=== PATIENT | male | born 1965 | race Caucasian/White ===

== ENCOUNTER 2016-10-06 17:08 | Emergency (ER) | payer SELFPAY ==
[2009-07-06 00:07] VITALS: BMI 24.3
== END 2016-10-06 18:37 | disposition home or self-care (01) ==
LOC: D.ER 17:08
DX: R20.2 Paresthesia of skin (principal); F15.10 Other stimulant abuse, uncomplicated

== ENCOUNTER 2017-07-05 22:06 | Emergency (ER) | payer SELFPAY ==
[2009-07-06 00:07] VITALS: BMI 24.3
== END 2017-07-05 22:40 | disposition left against medical advice (07) ==
LOC: D.ER 22:06
DX: Z00.00 Encounter for general adult medical examination without abnormal findings (principal)

== ENCOUNTER 2017-10-31 00:15 | Emergency (ER) | payer OTHER ==
[~2017-10-31] VITALS: Ht 172.7 cm; Wt 77.3 kg
[2017-10-31 00:19] VITALS: Ht 172.7 cm; Wt 77.3 kg
[2017-10-31] MEDS ORDERED: FLOMAX0.4 MG PO (00:20)
[2017-10-31 01:03] LABS: APPEARANCE CLEAR (CLEAR); BILIRUBIN NEGATIVE (NEGATIVE); COLOR YELLOW (YELLOW); GLUCOSE NEGATIVE (NEGATIVE); KETONE NEGATIVE (NEGATIVE); NITRITE NEGATIVE (NEGATIVE); PROTEIN NEGATIVE (NEGATIVE); UROBILINOGEN NORMAL (NORMAL)
[2017-10-31 01:05] LABS: BASOPHILS 0.2 % (0-2); EOSINOPHILS 1.2 % (0-7); HEMATOCRIT 39.9 % (42.0-54.0); HEMOGLOBIN 14.5 g/dL (13.5-17.5); IMMATURE GRANULOCYTES 0.2 % (0-5); LYMPHOCYTES 15.6 % (15-50); MCH 31.1 pg (26.0-34.0); MCHC 36.3 g/dL (31.0-37.0); MCV 85.6 fL (80.0-100.0); MEAN PLATELET VOLUME 10.5 fL (7.4-10.4); MONOCYTES 14.2 % (2-11); NEUTROPHILS 68.6 % (40-80); RBC 4.66 10x6/uL (4.20-6.10); RDW 13.6 % (11.5-14.5); WBC 9.6 10x3/uL (4.8-10.8)
[2017-10-31 01:12] LABS: ALBUMIN 3.9 g/dL (3.4-5.0); ANION GAP 15.7 mmol/L (8-16); BILIRUBIN - TOTAL 0.51 mg/dL (0.2-1.3); CALCIUM 8.6 mg/dL (8.5-10.1); CARBON DIOXIDE 25.5 mmol/L (21.0-32.0); CREATININE - SERUM 1.6 mg/dL (0.6-1.3); PLATELET COUNT 230 10x3/uL (130-400); POTASSIUM - SERUM 3.2 mmol/L (3.5-5.1); PROTEIN - SERUM 7.2 g/dL (6.4-8.2)
[2017-10-31 01:21] LABS: THYROID STIMULATING HORMONE 2.08 uIU/mL (0.36-3.74)
[2017-10-31 01:22] LABS: UDS - AMPHET POSITIVE QUAL (NEGATIVE); UDS - BARB NEGATIVE QUAL (NEGATIVE); UDS - BENZO NEGATIVE QUAL (NEGATIVE); UDS - COCAINE NEGATIVE QUAL (NEGATIVE); UDS - OPIATE NEGATIVE QUAL (NEGATIVE); UDS - PCP NEGATIVE QUAL (NEGATIVE); UDS - THC NEGATIVE QUAL (NEGATIVE)
[2017-10-31 03:52] LABS: CREATINE KINASE 908 UL (21-232)
[2017-10-31 03:53] LABS: CKMB 6.8 U/L (0.0-3.6)
[2017-10-31 05:52] VITALS: BP 146/79
== END 2017-10-31 05:52 | disposition home or self-care (01) ==
LOC: D.ER 00:15
PROVIDERS: Family Medicine
DX: F15.129 Other stimulant abuse with intoxication, unspecified (principal); E86.0 Dehydration; M62.82 Rhabdomyolysis; F17.200 Nicotine dependence, unspecified, uncomplicated

== ENCOUNTER 2017-11-15 14:27 | Emergency (ER) | payer OTHER ==
[~2017-11-15] VITALS: Ht 172.7 cm; Wt 75.0 kg
[~2017-11-15 14:27] MED LIST: FLOMAX0.4 MG PO
[2017-11-15 14:39] VITALS: BP 152/76; Ht 172.7 cm; Wt 75.0 kg
[2017-11-15 16:05] LABS: APPEARANCE CLEAR (CLEAR); BILIRUBIN NEGATIVE (NEGATIVE); COLOR YELLOW (YELLOW); GLUCOSE NEGATIVE (NEGATIVE); KETONE NEGATIVE (NEGATIVE); NITRITE NEGATIVE (NEGATIVE); PROTEIN NEGATIVE (NEGATIVE); SPECIFIC GRAVITY 1.015 (1.005-1.020); UROBILINOGEN NORMAL (NORMAL)
[2017-11-15 16:06] LABS: BACTERIA FEW /hpf (NONE SEEN); WHITE CELLS - URINE 0-5 /hpf (0-5)
[2017-11-15 16:10] LABS: UDS - AMPHET POSITIVE QUAL (NEGATIVE); UDS - BARB NEGATIVE QUAL (NEGATIVE); UDS - BENZO NEGATIVE QUAL (NEGATIVE); UDS - COCAINE NEGATIVE QUAL (NEGATIVE); UDS - OPIATE NEGATIVE QUAL (NEGATIVE); UDS - PCP NEGATIVE QUAL (NEGATIVE); UDS - THC NEGATIVE QUAL (NEGATIVE)
[2017-11-15 16:22] LABS: BASOPHILS 0.3 % (0-2); EOSINOPHILS 3.5 % (0-7); HEMATOCRIT 43.8 % (42.0-54.0); HEMOGLOBIN 15.3 g/dL (13.5-17.5); IMMATURE GRANULOCYTES 0.3 % (0-5); MCH 30.8 pg (26.0-34.0); MCHC 34.9 g/dL (31.0-37.0); MCV 88.3 fL (80.0-100.0); MEAN PLATELET VOLUME 9.8 fL (7.4-10.4); MONOCYTES 8.8 % (2-11); NEUTROPHILS 55.1 % (40-80); RBC 4.96 10x6/uL (4.20-6.10); RDW 13.5 % (11.5-14.5); WBC 7.5 10x3/uL (4.8-10.8)
[2017-11-15 16:32] LABS: ALBUMIN 3.9 g/dL (3.4-5.0); ALKALINE PHOSPHATASE 70 U/L (46-116); ALT (SGPT) 23 U/L (10-68); BILIRUBIN - TOTAL 0.28 mg/dL (0.2-1.3); CALC OSMOLALITY 284 mosm/kg (275-300); CALCIUM 8.9 mg/dL (8.5-10.1); CARBON DIOXIDE 31.4 mmol/L (21.0-32.0); CHLORIDE - SERUM 104 mmol/L (98-107); GLUCOSE 117 mg/dL (74-106); POTASSIUM - SERUM 3.9 mmol/L (3.5-5.1); SODIUM 142 mmol/L (136-145); UREA NITROGEN 14 mg/dL (7-18); eGFR NON AFRICAN AMERICAN 83 mL/min (90-120)
[2017-11-15 16:35] LABS: PLATELET COUNT 377 10x3/uL (130-400)
[2017-11-15] MEDS ORDERED: ALBENZA200 MG PO (17:40)
[2017-12-01 18:10] LABS: OVA + PARASITE EXAM Final report (())
== END 2017-11-15 17:56 | disposition home or self-care (01) ==
LOC: D.ER 14:27
PROVIDERS: Family Medicine
DX: B80 Enterobiasis (principal)

== ENCOUNTER 2017-12-03 12:46 | Emergency (ER) | payer OTHER ==
[~2017-12-03] VITALS: Ht 172.7 cm; Wt 75.0 kg
[~2017-12-03 12:46] MED LIST changes: +ALBENZA200 MG PO
[2017-12-03 13:20] VITALS: Ht 172.7 cm; Wt 75.0 kg
[2017-12-03] MEDS ORDERED: PERMETHRIN60 GM TOPICAL (15:48)
[2017-12-03 16:21] VITALS: BP 136/84
== END 2017-12-03 16:22 | disposition home or self-care (01) ==
LOC: D.ER 12:46
DX: B88.8 Other specified infestations (principal); F17.200 Nicotine dependence, unspecified, uncomplicated

== ENCOUNTER 2019-06-12 23:33 | Inpatient (IN) | payer SELFPAY ==
[~2019-06-12] VITALS: Ht 152.4 cm; Wt 95.5 kg
[~2019-06-12 23:33] MED LIST changes: +PERMETHRIN60 GM TOPICAL
[2019-06-13] VITALS (7 sets, daily range): BP systolic 105–145; BP diastolic 67–91; Ht 152.4 cm; Wt 95.5 kg
[2019-06-13 00:03] LABS: HEMATOCRIT 41.2 % (42.0-54.0); HEMOGLOBIN 14.2 g/dL (13.5-17.5); LYMPHOCYTES 9.8 % (15-50); MCH 30.3 pg (26.0-34.0); MCHC 34.5 g/dL (31.0-37.0); MCV 87.8 fL (80.0-100.0); MEAN PLATELET VOLUME 9.5 fL (7.4-10.4); NEUTROPHILS 78.9 % (40-80); PLATELET COUNT 322 10x3/uL (130-400); RBC 4.69 10x6/uL (4.20-6.10); RDW 14.1 % (11.5-14.5); WBC 12.1 10x3/uL (4.8-10.8)
[2019-06-13 00:08] LABS: APTT 25.8 SECONDS (22.8-39.4); INR 0.99 (0.85-1.17); PROTIME 13.1 SECONDS (11.6-15.0)
[2019-06-13 00:15] LABS: CALC OSMOLALITY 264 mosm/kg (275-300); CALCIUM 8.9 mg/dL (8.5-10.1); CARBON DIOXIDE 24.9 mmol/L (21.0-32.0); CHLORIDE - SERUM 97 mmol/L (98-107); CREATININE - SERUM 1.1 mg/dL (0.6-1.3); GLUCOSE 122 mg/dL (74-106); POTASSIUM - SERUM 3.6 mmol/L (3.5-5.1); SODIUM 131 mmol/L (136-145); UREA NITROGEN 15 mg/dL (7-18); eGFR NON AFRICAN AMERICAN 74 mL/min (90-120)
--- NOTE | 2019-06-13 00:20 | NUR ---
PT STATES GI COCKTAIL HELPED "SOMEWHAT"- NITRO AND ASA TO PATIENT.
[2019-06-13 00:24] LABS: ALBUMIN 3.7 g/dL (3.4-5.0); ALKALINE PHOSPHATASE 60 U/L (30-120); ALT (SGPT) 28 U/L (10-68); AMYLASE - SERUM 62 U/L (25-115); BILIRUBIN - TOTAL 0.65 mg/dL (0.2-1.3); CKMB 1.1 U/L (0.0-3.6); CREATINE KINASE 127 UL (21-232); LIPASE 93 U/L (73-393); MAGNESIUM - SERUM 1.8 mg/dL (1.8-2.4); PROTEIN - SERUM 7.1 g/dL (6.4-8.2)
[2019-06-13 00:30] LABS: TROPONIN-I < 0.017 ng/mL (0.000-0.060)
--- NOTE | 2019-06-13 01:24 | NUR ---
URINE SENT TO LAB. PT TO CT VIA STRETCHER AT THIS TIME.
[2019-06-13 02:36] LABS: BILIRUBIN NEGATIVE (NEGATIVE); GLUCOSE NEGATIVE (NEGATIVE); KETONE LARGE mg/dL (NEGATIVE); NITRITE NEGATIVE (NEGATIVE); UROBILINOGEN NORMAL (NORMAL)
[2019-06-13 02:45] LABS: UDS - AMPHET POSITIVE QUAL (NEGATIVE); UDS - BARB NEGATIVE QUAL (NEGATIVE); UDS - BENZO NEGATIVE QUAL (NEGATIVE); UDS - COCAINE NEGATIVE QUAL (NEGATIVE); UDS - OPIATE POSITIVE QUAL (NEGATIVE); UDS - PCP NEGATIVE QUAL (NEGATIVE); UDS - THC NEGATIVE QUAL (NEGATIVE)
[2019-06-13 07:07] LABS: CKMB 0.6 U/L (0.0-3.6); CREATINE KINASE 105 UL (21-232); TROPONIN-I < 0.017 ng/mL (0.000-0.060)
--- NOTE | 2019-06-13 07:47 | NUR ---
REPORT RECEIVED FROM FLAMER SEALER AND PATIENT CARE ASSUMED. PATIENT LAYING IN BED ON BACK WITH EYES CLOSED AND BREATHING EVENLY. WILL CONTINUE WITH PLAN OF CARE. SR UPX 2 BED IN LOW POSITION AND CALL LIGHT IN REACH.
[2019-06-13 13:43] LABS: CKMB 0.7 U/L (0.0-3.6); CREATINE KINASE 91 UL (21-232); TROPONIN-I < 0.017 ng/mL (0.000-0.060)
--- NOTE | 2019-06-13 14:51 | NUR ---
PATIENT RESTING QUIETLY WATCHING TV. PATIENT IS STABLE AND VSS. TEENA TRAN IN ROOM. NEW ORDERS RECEIVED. WILL CONTINUE TO MONITOR. SR UP X 2 BED IN LOW POSITION AND CALL LIGHT IN REACH.
--- NOTE | 2019-06-13 17:25 | MORECARE ---
CASE MANAGEMENT DISCHARGE SUMMARY PATIENT: MONICA VALLE UNIT: [id number] ADM DATE: 06/13/19 AGE: 53 : 65 SEX: M ROOM/BED: D.2121 AUTHOR: LISA CARROLL PHYSICIAN: REFERRING PHYSICIAN: YUNIOR JOHN MD DATE OF SERVICE: 06/13/19 Discharge Plan Patient Name: MONICA VALLE Facility: [facility]:[place] : 1965 Planned Disposition: Home Anticipated Discharge Date: Discharge Date: Expected LOS: Initial Reviewer: [email or web address] Initial Review Date: 06/13/2019 Generated: 06/13/19 6:24 pm DCPIA - Discharge Planning Initial Assessment Updated by [email or web address]: Satnam Barney on 06/13/19 5:23 pm * Is the patient Alert and Oriented? Yes * How many steps to enter\exit or inside your home? 3-O/2-I * PCP NONE [facility] * Pharmacy [facility] * Preadmission Environment Home with Family * ADLs Independent * Equipment None * Other Equipment NO MEDICAL EQUIPMENT PROVIDER PREFERENCE * List name and contact numbers for known caregivers / representatives who currently or will assist patient after discharge: CATHY REYES, FRIEND, GREGORIO KHAN, FRIEND, * Verbal permission to speak to the caregivers and representatives has been obtained from the patient. N/A * Community resources currently utilized None * Please name any agencies selected above. NONE * Additional services required to return to the preadmission environment? No * Can the patient safely return to the preadmission environment? Yes * Has this patient been hospitalized within the prior 30 days at any hospital? No Patient Name: MONICA VALLE Page [id number] at 1720 All edits/amendments must be made on the electronic document DICTATION DATE: 06/13/191723 MEDICAL WRITER: BETO 06/13/191723 RPT#: [id number] DC DATE: STATUS: ADM IN [facility] [address] [place] [address] END OF REPORT
--- NOTE | 2019-06-13 17:33 | MORECARE ---
CASE MANAGEMENT DISCHARGE SUMMARY PATIENT: MONICA VALLE UNIT: [id number] ADM DATE: 06/13/19 AGE: 53 : 65 SEX: M ROOM/BED: D.2323 AUTHOR: GLEN,DOC PHYSICIAN: REFERRING PHYSICIAN: YUNIOR JOHN MD DATE OF SERVICE: 06/13/19 Discharge Plan Patient Name: MONICA VALLE Facility: [facility]:[place] : 1965 Planned Disposition: Home Anticipated Discharge Date: Discharge Date: Expected LOS: Initial Reviewer: [email or web address] Initial Review Date: 06/13/2019 Generated: 06/13/19 6:32 pm Comments DCP- Discharge Planning Updated by [id number]: Satnam Barney on 06/13/19 4:[address] Patient Name: MONICA VALLE Admission Status: ER Accout number: [id number] Admission Date: 06-13-2019 : 1965 Admission Diagnosis: Attending: ANTWAN Current LOS: 1 Anticipated DC Date: Planned Disposition: Home Primary Insurance: UNINSURED DISCOUNT PLAN Discharge Planning Comments: CM MET WITH PT IN ROOM TO DISCUSS DISCHARGE PLANNING AND NEEDS. PT REPORTS LIVING AT HOME INDEPENDENTLY WITH TWO ROOMMATES. PT HAS NO MEDICAL EQUIPMENT AND NO OUTSIDE SERVICES ASSISTING IN THE HOME. CM DISCUSSED AVAILABILITY OF HOME HEALTH, REHAB SERVICES AND MEDICAL EQUIPMENT. PT DENIES DISCHARGE NEEDS, REPORTS HE HAS NO INSURANCE, HE HAD AMBETTER LAST YEAR BUT IT WAS DROPPED FOR SOME UNKNOWN REASON. PT DOES NOT HAVE PRIMARY DOCTOR AND USES THE WALK IN CLINIC ON [facility]. PT REPORTS HE WILL CALL A FRIEND WHO WILL PICK HIM UP FOR DISCHARGE HOME. PT WOULD BE WILLING TO TALK WITH [employer] PERSONNEL TO DISCUSS APPLYING FOR MEDICAID. CM CALLED [employer], LEFT MESSAGE FOR GABY AT [phone], REQUESTING INSURANCE SCREENING. PT PLANS TO RETURN HOME WITH TWO ADULT FRIENDS. PT DENIES DISCHARGE NEEDS AT THIS TIME. PT WILL PHONE A FRIEND TO PICK HIM UP FOR DISCHARGE HOME. CM TO FOLLOW AND ASSIST IF NEEDED. Child Study Team Director: Satnam Barney DCPIA - Discharge Planning Initial Assessment Updated by [email or web address]: Satnam Barney on 06/13/19 5:23 pm * Is the patient Alert and Oriented? Yes * How many steps to enter\exit or inside your home? 3-O/2-I * PCP NONE [facility] [address] * Pharmacy [facility] [place] * Preadmission Environment Home with Family * ADLs Independent * Equipment None * Other Equipment NO MEDICAL EQUIPMENT PROVIDER PREFERENCE * List name and contact numbers for known caregivers / representatives who currently or will assist patient after discharge: CATHY REYES, FRIEND, GREGORIO RENANGEL, FRIEND, * Verbal permission to speak to the caregivers and representatives has been obtained from the patient. N/A * Community resources currently utilized None * Please name any agencies selected above. NONE * Additional services required to return to the preadmission environment? No * Can the patient safely return to the preadmission environment? Yes * Has this patient been hospitalized within the prior 30 days at any hospital? No Last DP export: 06/13/19 4:25 pm Patient Name: MONICA VALLE Page [phone] at 1733 All edits/amendments must be made on the electronic document DICTATION DATE: 06/13/191731 MERCHANDISE FLOW TEAM LEADER: BETO 06/13/191731 RPT#: [id number] DC DATE: STATUS: ADM IN [facility] [address] [place] [address] END OF REPORT
[2019-06-13 19:05] LABS: CKMB 0.3 U/L (0.0-3.6); CREATINE KINASE 82 UL (21-232)
[2019-06-13 19:07] LABS: TROPONIN-I < 0.017 ng/mL (0.000-0.060)
[2019-06-14] VITALS: BP 136/71
[2019-06-14 04:00] VITALS: BP 130/74
[2019-06-14 06:23] LABS: BASOPHILS 0.3 % (0-2); EOSINOPHILS 3.5 % (0-7); HEMATOCRIT 41.7 % (42.0-54.0); HEMOGLOBIN 13.9 g/dL (13.5-17.5); IMMATURE GRANULOCYTES 0.2 % (0-5); LYMPHOCYTES 25.1 % (15-50); MCH 30.2 pg (26.0-34.0); MCHC 33.3 g/dL (31.0-37.0); MEAN PLATELET VOLUME 10.4 fL (7.4-10.4); MONOCYTES 12.4 % (2-11); NEUTROPHILS 58.5 % (40-80); PLATELET COUNT 305 10x3/uL (130-400); RBC 4.61 10x6/uL (4.20-6.10); RDW 13.8 % (11.5-14.5); WBC 9.2 10x3/uL (4.8-10.8)
[2019-06-14 06:26] LABS: MCV 90.5 fL (80.0-100.0)
[2019-06-14 06:42] LABS: ALBUMIN 3.4 g/dL (3.4-5.0); ANION GAP 12.3 mmol/L (8-16); BILIRUBIN - TOTAL 0.35 mg/dL (0.2-1.3); CALCIUM 8.5 mg/dL (8.5-10.1); CREATININE - SERUM 1.1 mg/dL (0.6-1.3); MAGNESIUM - SERUM 2.2 mg/dL (1.8-2.4); POTASSIUM - SERUM 4.3 mmol/L (3.5-5.1); PROTEIN - SERUM 6.3 g/dL (6.4-8.2)
--- NOTE | 2019-06-14 08:37 | MORECARE ---
CASE MANAGEMENT DISCHARGE SUMMARY PATIENT: MONICA VALLE UNIT: [id number] ADM DATE: 06/13/19 AGE: 53 : 65 SEX: M ROOM/BED: D.0419 AUTHOR: GLEN,DOC PHYSICIAN: REFERRING PHYSICIAN: YUNIOR JOHN MD DATE OF SERVICE: 06/14/19 Discharge Plan Patient Name: MONICA VALLE Facility: [facility]:[place] : 1965 Planned Disposition: Home Anticipated Discharge Date: Discharge Date: Expected LOS: Initial Reviewer: [email or web address] Initial Review Date: 06/13/2019 Generated: 06/14/19 9:37 am Comments DCP- Discharge Planning Updated by [id number]: Satnam Barney on 06/13/19 4:[address] Patient Name: MONICA AVLLE Admission Status: ER Accout number: [id number] Admission Date: 06-13-2019 : 1965 Admission Diagnosis: Attending: ANTWAN Current LOS: 1 Anticipated DC Date: Planned Disposition: Home Primary Insurance: UNINSURED DISCOUNT PLAN Discharge Planning Comments: CM MET WITH PT IN ROOM TO DISCUSS DISCHARGE PLANNING AND NEEDS. PT REPORTS LIVING AT HOME INDEPENDENTLY WITH TWO ROOMMATES. PT HAS NO MEDICAL EQUIPMENT AND NO OUTSIDE SERVICES ASSISTING IN THE HOME. CM DISCUSSED AVAILABILITY OF HOME HEALTH, REHAB SERVICES AND MEDICAL EQUIPMENT. PT DENIES DISCHARGE NEEDS, REPORTS HE HAS NO INSURANCE, HE HAD AMBETTER LAST YEAR BUT IT WAS DROPPED FOR SOME UNKNOWN REASON. PT DOES NOT HAVE PRIMARY DOCTOR AND USES THE WALK IN CLINIC ON [facility]. PT REPORTS HE WILL CALL A FRIEND WHO WILL PICK HIM UP FOR DISCHARGE HOME. PT WOULD BE WILLING TO TALK WITH [employer] PERSONNEL TO DISCUSS APPLYING FOR MEDICAID. CM CALLED [employer], LEFT MESSAGE FOR GABY AT [phone], REQUESTING INSURANCE SCREENING. PT PLANS TO RETURN HOME WITH TWO ADULT FRIENDS. PT DENIES DISCHARGE NEEDS AT THIS TIME. PT WILL PHONE A FRIEND TO PICK HIM UP FOR DISCHARGE HOME. CM TO FOLLOW AND ASSIST IF NEEDED. Mobile Nurse: Satnam Barney DCPIA - Discharge Planning Initial Assessment Updated by [email or web address]: Satnam Barney on 06/13/19 5:23 pm * Is the patient Alert and Oriented? Yes * How many steps to enter\exit or inside your home? 3-O/2-I * PCP NONE [facility] [address] * [facility]acy [facility] [place] * Preadmission Environment Home with Family * ADLs Independent * Equipment None * Other Equipment NO MEDICAL EQUIPMENT PROVIDER PREFERENCE * List name and contact numbers for known caregivers / representatives who currently or will assist patient after discharge: CATHY REYES, FRIEND, GREGORIO RAMIREZTEMO, FRIEND, * Verbal permission to speak to the caregivers and representatives has been obtained from the patient. N/A * Community resources currently utilized None * Please name any agencies selected above. NONE * Additional services required to return to the preadmission environment? No * Can the patient safely return to the preadmission environment? Yes * Has this patient been hospitalized within the prior 30 days at any hospital? No Last DP export: 06/13/19 4:33 pm Patient Name: MONICA VALLE Page [phone] at 0837 All edits/amendments must be made on the electronic document DICTATION DATE: 06/14/19836 HOME CARE ADMINISTRATOR: BETO 06/14/19 RPT#: [id number] DC DATE: STATUS: ADM IN [facility] [address] [place] [address] END OF REPORT
[2019-06-14 10:54] VITALS: BP 118/84
[2019-06-14 12:00] VITALS: BP 138/82
--- NOTE | 2019-06-14 12:22 | NUR ---
LEAVING FOR STRESS TEST BY W/C.
--- NOTE | 2019-06-14 12:56 | NUR ---
STRESS TEST COMPLETED. DIET RESUMED.
[2019-06-14 16:00] VITALS: BP 145/76
[2019-06-14 20:00] VITALS: BP 155/96
[2019-06-15] VITALS: BP 119/66
[2019-06-15 04:00] VITALS: BP 128/74
[2019-06-15 05:26] LABS: ANION GAP 9.7 mmol/L (8-16); BILIRUBIN - TOTAL 0.12 mg/dL (0.2-1.3); CARBON DIOXIDE 27.3 mmol/L (21.0-32.0); CREATININE - SERUM 1.2 mg/dL (0.6-1.3); MAGNESIUM - SERUM 2.3 mg/dL (1.8-2.4); PROTEIN - SERUM 6.6 g/dL (6.4-8.2)
[2019-06-15 05:32] LABS: BASOPHILS 0.5 % (0-2); EOSINOPHILS 6.8 % (0-7); HEMATOCRIT 42.5 % (42.0-54.0); HEMOGLOBIN 14.1 g/dL (13.5-17.5); IMMATURE GRANULOCYTES 0.3 % (0-5); LYMPHOCYTES 29.4 % (15-50); MCH 30.2 pg (26.0-34.0); MCHC 33.2 g/dL (31.0-37.0); MEAN PLATELET VOLUME 10.2 fL (7.4-10.4); MONOCYTES 14.2 % (2-11); NEUTROPHILS 48.8 % (40-80); PLATELET COUNT 360 10x3/uL (130-400); RBC 4.67 10x6/uL (4.20-6.10); RDW 13.9 % (11.5-14.5)
[2019-06-15 05:45] LABS: WBC 6.4 10x3/uL (4.8-10.8)
--- NOTE | 2019-06-15 07:15 | NUR ---
RECEIVED PT IN BED AAOX4 RESP UNLABORED SKIN W/D COLOR WNL PT DENIES ANY PAIN OR NEEDS AT THIS TIME
[2019-06-15 09:00] VITALS: BP 129/82
[2019-06-15 12:00] VITALS: BP 111/67
--- NOTE | 2019-06-15 12:32 | NUR ---
TYLENOL 650 MG GIVEN PO FOR C/O [place] 07/21
[2019-06-15] MEDS ORDERED: PROTONIX40 MG PO (12:46)
[2019-06-15] MEDS ORDERED: CARAFATE1 G PO (12:46)
--- NOTE | 2019-06-15 14:10 | NUR ---
reviewed DISCHARGE INSTRUCTIONS WITH PT STATES UNDERSTANDING COPY GIVEN DCD SALINE LOCK TO RT WRIST WITH IV CATHETER INTACT SLIGHT REDNESS NOTED AT SITE
--- NOTE | 2019-06-15 14:17 | NUR ---
PT DISCHARGED HOME LEFT UNIT WALKING IN STABLE CONDITION WITH ALL PERSONAL BELONGINGS
--- NOTE | 2019-06-15 14:30 | MORECARE ---
CASE MANAGEMENT DISCHARGE SUMMARY PATIENT: MONICA VALLE UNIT: [id number] ADM DATE: 06/13/19 AGE: 53 : 65 SEX: M ROOM/BED: D.9120 AUTHOR: GLEN,DOC PHYSICIAN: REFERRING PHYSICIAN: YUNIOR JOHN MD DATE OF SERVICE: 06/15/19 Discharge Plan Patient Name: MONICA VALLE Facility: [facility]:[place] : 1965 Planned Disposition: Home Anticipated Discharge Date: 06/15/19 Discharge Date: Expected LOS: 2 Initial Reviewer: [email or web address] Initial Review Date: 06/13/2019 Generated: 06/15/19 3:29 pm Comments DCP- Discharge Planning Updated by [email or web address]: Satnam Barney on 06/15/19 1:[address] Interdisciplinary Team Meeting Note: Patient was admitted on 06-13-2019 with a diagnosis of CHEST PAIN, UNSPECIFIED. Interdisciplinary Team Meetings were held . In attendance were: Napper Fixer Dietary Provider Nursing Physical Therapy Post Acute Occupational Therapy Respiratory Therapy Speech Therapy IDT recommendation for Discharge Plan: CHEST PAIN, STRESS TEST WITHIN NORMAL LIMITS. ROOM AIR. PLANNED DISCHARGE HOME TODAY. PT REPORTS NO NEEDS FOR DISCHARGE. Anticipated Discharge date: 06-15-2019 PHIL VILLAGOMEZ DCP- Discharge Planning Updated by [email or web address]: Satnam Barney on 06/13/19 4:[address] Patient Name: MONICA VALLE Admission Status: ER Accout number: [id number] Admission Date: 06-13-2019 : 1965 Admission Diagnosis: Attending: ANTWAN Current LOS: 1 Anticipated DC Date: Planned Disposition: Home Primary Insurance: UNINSURED DISCOUNT PLAN Discharge Planning Comments: CM MET WITH PT IN ROOM TO DISCUSS DISCHARGE PLANNING AND NEEDS. PT REPORTS LIVING AT HOME INDEPENDENTLY WITH TWO ROOMMATES. PT HAS NO MEDICAL EQUIPMENT AND NO OUTSIDE SERVICES ASSISTING IN THE HOME. CM DISCUSSED AVAILABILITY OF HOME HEALTH, REHAB SERVICES AND MEDICAL EQUIPMENT. PT DENIES DISCHARGE NEEDS, REPORTS HE HAS NO INSURANCE, HE HAD AMBETTER LAST YEAR BUT IT WAS DROPPED FOR SOME UNKNOWN REASON. PT DOES NOT HAVE PRIMARY DOCTOR AND USES THE WALK IN CLINIC ON [facility]. PT REPORTS HE WILL CALL A FRIEND WHO WILL PICK HIM UP FOR DISCHARGE HOME. PT WOULD BE WILLING TO TALK WITH [employer] PERSONNEL TO DISCUSS APPLYING FOR MEDICAID. CM CALLED [employer], LEFT MESSAGE FOR GABY AT [phone], REQUESTING INSURANCE SCREENING. PT PLANS TO RETURN HOME WITH TWO ADULT FRIENDS. PT DENIES DISCHARGE NEEDS AT THIS TIME. PT WILL PHONE A FRIEND TO PICK HIM UP FOR DISCHARGE HOME. CM TO FOLLOW AND ASSIST IF NEEDED. Napper Fixer: Satnam Barney DCPIA - Discharge Planning Initial Assessment Updated by [email or web address]: Satnam Barney on 06/13/19 5:23 pm * Is the patient Alert and Oriented? Yes * How many steps to enter\exit or inside your home? 3-O/2-I * PCP NONE [facility] * Pharmacy [facility] [place] * Preadmission Environment Home with Family * ADLs Independent * Equipment None * Other Equipment NO MEDICAL EQUIPMENT PROVIDER PREFERENCE * List name and contact numbers for known caregivers / representatives who currently or will assist patient after discharge: CATHY REYES, FRIEND, GREGORIO KHAN, FRIEND, * Verbal permission to speak to the caregivers and representatives has been obtained from the patient. N/A * Community resources currently utilized None * Please name any agencies selected above. NONE * Additional services required to return to the preadmission environment? No * Can the patient safely return to the preadmission environment? Yes * Has this patient been hospitalized within the prior 30 days at any hospital? No Last DP export: 06/14/19 7:37 am Patient Name: MONICA VALLE Page [id number] at 1430 All edits/amendments must be made on the electronic document DICTATION DATE: 06/15/191428 STERILISATION TECHNICIAN: BETO 06/15/19 142 RPT#: [id number] DC DATE: STATUS: ADM IN [facility] [address] [place] [address] END OF REPORT
[2019-06-15] MEDS ORDERED: LISINOPRIL2.5 MG PO (17:56)
[2019-06-15] MEDS ORDERED: TOPROL XL25 MG PO (17:56)
== END 2019-06-15 14:17 | disposition home or self-care (01) | DRG 392 ==
LOC: D.ER 23:33 → D.M2 06-13 03:17 → OBSVTIME 06-13 03:17 → D.M2 06-13 15:43 → D.SDCHOLD 06-15 15:10 → D.M2 06-15 15:10
PROVIDERS: Family Medicine; ADMIT Family Medicine; ATTEND Family Medicine
DX: K20.9 Esophagitis, unspecified (principal); I20.0 Unstable angina; F11.20 Opioid dependence, uncomplicated; F15.20 Other stimulant dependence, uncomplicated; E87.1 Hypo-osmolality and hyponatremia; I50.20 Unspecified systolic (congestive) heart failure; D64.9 Anemia, unspecified; F10.21 Alcohol dependence, in remission; Z82.49 Family history of ischemic heart disease and other diseases of the circulatory system